=== PATIENT | male | born 1935 | race Caucasian/White ===

== ENCOUNTER → 2018-04-07 10:09 | Outpatient (CLI) | payer MEDICARE, SELFPAY ==
[2018-04-07 11:35] LABS: Erythrocyte Sedimentation Rate 58 MM/HR (0-15)
[2018-04-07 12:26] LABS: C-Reactive Protein Quant 6.1 mg/dL (<1.0)
== END ==
PROVIDERS: Visit Provider Specialist
DX: M31.6 Other giant cell arteritis (principal)
CPT/HCPCS: 36415; 85651; 86140

== ENCOUNTER → 2018-04-21 09:24 | Outpatient (CLI) | payer MEDICARE, SELFPAY ==
[2018-04-21 10:49] LABS: Erythrocyte Sedimentation Rate 54 MM/HR (0-15)
[2018-04-21 11:21] LABS: C-Reactive Protein Quant 4.4 mg/dL (<1.0)
== END ==
PROVIDERS: Visit Provider Specialist
DX: M31.6 Other giant cell arteritis (principal)
CPT/HCPCS: 36415; 85651; 86140

== ENCOUNTER → 2018-06-28 09:11 | Outpatient (CLI) | payer MEDICARE, SELFPAY ==
[2018-06-28 10:26] LABS: Add Manual Diff / Slide Review NO; Basophils Percent Auto 0.4 % (0-2); Hematocrit 34.8 % (41-53); Hemoglobin 11.8 g/dL (13.5-17.5); Lymphocytes Percent Auto 14.8 % (25-40); Mean Corpuscular HGB Conc 33.8 % (30-36); Mean Corpuscular Hemoglobin 31.6 PG (26-34); Mean Corpuscular Volume 93.6 fL (80-100); Monocytes Percent Auto 12.7 % (3-14); Neutrophils Absolute Auto 3800 /uL (3000-5900); Neutrophils Percent Auto 68.1 % (50-75); Platelet Count 158 X10^3/uL (150-400); Red Blood Cell Count 3.72 X10^6/uL (4.5-5.9); Red Cell Distribution Width 16.2 % (11.6-14.8); White Blood Cell Count 5.6 X10^3/uL (4.5-11.0)
[2018-06-28 10:35] LABS: C-Reactive Protein Quant < 0.5 mg/dL (<1.0)
[2018-06-28 10:49] LABS: Erythrocyte Sedimentation Rate 17 MM/HR (0-15)
== END ==
PROVIDERS: Specialist; PCP Ophthalmology; Visit Provider Emergency Medicine
DX: M31.6 Other giant cell arteritis (principal)
CPT/HCPCS: 36415; 85025; 85651; 86140